=== PATIENT | female | born 1930 | race Caucasian/White ===

== ENCOUNTER 2017-10-11 23:18 | Emergency (ER) | payer MEDICARE ==
[~2017-10-11] VITALS: Ht 152.4 cm; Wt 60.6 kg
[2017-10-11 23:26] VITALS: BP 164/70; PULSE 79; RESP 18; TEMP 97.4; O2SAT 98
[2017-10-11 23:30] VITALS: BP 151/65; PULSE 74; RESP 18; O2SAT 96
[2017-10-12] MEDS ORDERED: NIFE1TAB86 PO (00:32)
[2017-10-12] MEDS ORDERED: MECL1TAB42 PO (00:32)
[2017-10-12] MEDS ORDERED: FOLI800T PO (00:32)
[2017-10-12] MEDS ORDERED: SPIR25TA PO (00:32)
[2017-10-12] MEDS ORDERED: IBAN150T3 PO (00:32)
[2017-10-12] MEDS ORDERED: NITR1SUB3 SL (00:32)
[2017-10-12] MEDS ORDERED: PRAV40TA2 PO (00:32)
[2017-10-12] MEDS ORDERED: ZOFR4TAB PO (00:32)
[2017-10-12] MEDS ORDERED: MIRTA15 PO (00:32)
[2017-10-12] MEDS ORDERED: CALCTAB25 PO (00:32)
[2017-10-12] MEDS ORDERED: LORA1TAB12 PO (00:32)
[2017-10-12] MEDS ORDERED: SPIRCAP INH (00:32)
[2017-10-12] MEDS ORDERED: ESCI5TAB PO (00:32)
[2017-10-12] MEDS ORDERED: SYMB80AE INH (00:32)
[2017-10-12] MEDS ORDERED: LANS30CA PO (00:32)
[2017-10-12] MEDS ORDERED: L-LY500T4 PO (00:32)
[2017-10-12] MEDS ORDERED: PLAV75TA29 PO (00:32)
[2017-10-12 01:15] VITALS: BP 145/63; PULSE 72; RESP 18; O2SAT 95
--- NOTE | 2017-10-12 01:28 | PD ---
HPI Chief Complaint: Respiratory Symptoms Time Seen by Provider: 01:20 Travel History International Travel<30 days: No Contact w/Intl Traveler<30days: No Traveled to known affect area: No History of Present Illness HPI The patient is an 87-year-old female that has a history of COPD, likely from secondhand smoke, because the patient never smoked. She has a cough for 7 days which is nonproductive. She denies any fever. On Monday she went to an urgent care center and had a chest x-ray which was reportedly normal and was put on prednisone. She has not gotten better, she continues to wheeze. She denies any chest pain. She was started 5 days ago on prednisone 20 mg twice daily for 10 days. PFSH Past Medical History Hx Anticoagulant Therapy: Yes (PLAVIX) Asthma: Yes Cardiovascular Problems: Yes (CARDIAC STENTS: AUG, 2016) COPD: Yes Respiratory: Yes (COPD) Influenza Vaccination: No ?: Not Past Surgical History Coronary Stent: Yes (2015) Thoracic Surgery: Yes (Back surgery) Tonsillectomy: Yes Social History Alcohol Use: No Tobacco Use: No Substance Use: No Allergies-Medications (Allergen,Severity, Reaction): Coded Allergies: codeine (Verified Allergy, Intermediate, Nausea/Vomiting, 10/12/17) Uncoded Allergies: CT DYE (Allergy, Intermediate, Rash, 10/11/17) Reported Meds & Prescriptions Reported Meds & Active Scripts Active Reported Ibandronate (Ibandronate Sodium) 150 Mg Tab 150 Mg PO Q28D Nitroglycerin SL (Nitroglycerin) 0.4 Mg Subl 0.4 Mg SL DIRECTED PRN ONE TABLET UNDER THE TONGUE NEEDED FOR CHEST PAIN, MAY REPEAT EVERY FIVE MINUTES FOR A TOTAL OF 3 DOSES OR CALL 911 IF NO RELIEF Escitalopram (Escitalopram Oxalate) 5 Mg Tab 5 Mg PO BID Meclizine 25 (Meclizine HCl) 25 Mg Tab 25 Mg PO DAILY l-Lysine (Lysine) 500 Mg Tab 500 Mg PO DAILY Zofran (Ondansetron HCl) 4 Mg Tab 4 Mg PO Q6HR PRN Mirtazapine 15 Mg Tab 15 Mg PO HS Lorazepam 1 Mg Tab 1 Mg PO BID PRN Symbicort Inh (Budesonide/Formoterol Fumarate) 80-4.5 Mcg/Act Aero 1 Puff INH Q12HR Lansoprazole 30 Mg Capdr 30 Mg PO DAILY Calcium 500 + Vit D Caplet (Calcium Carbonate/Vitamin D3) 500 Mg-125 Tablet 500 Mg PO DAILY Folic Acid 0.8 Mg Tab 800 Mcg PO DAILY Pravastatin 40 Mg Tab 40 Mg PO DAILY Spironolactone 25 Mg Tab 25 Mg PO DAILY Procardia XL (Nifedipine) 60 Mg Tab 60 Mg PO DAILY Spiriva Handihaler (Tiotropium Inh) 18 Mcg Cap 18 Mcg INH DAILY 1 capsule = 18 mcg Plavix (Clopidogrel Bisulfate) 75 Mg Tab 75 Mg PO DAILY Review of Systems Except as stated in HPI: all other systems reviewed are Neg Physical Exam Narrative GENERAL: The patient's vital signs show blood pressure 151/65 and are otherwise normal. Oximetry is 96%. The patient is in no respiratory distress other than the mild wheezing. SKIN: Focused skin assessment warm/dry. HEAD: Atraumatic. Normocephalic. EYES: Pupils equal and round. No scleral icterus. No injection or drainage. ENT: No nasal bleeding or discharge. Mucous membranes pink and moist. NECK: Trachea midline. No JVD. No neck vein distention is present. CARDIOVASCULAR: Regular rate and rhythm. No murmur appreciated. RESPIRATORY: No accessory muscle use. Bilateral wheezes are heard in all lung ferreira.. Breath sounds equal bilaterally. GASTROINTESTINAL: Abdomen soft, non-tender, nondistended. Hepatic and splenic margins not palpable. No guarding or rebound is present. MUSCULOSKELETAL: No obvious deformities. No clubbing. No cyanosis. No edema. NEUROLOGICAL: Awake and alert. No obvious cranial nerve deficits. Motor grossly within normal limits. Normal speech. PSYCHIATRIC: Appropriate mood and affect; insight and judgment normal. Data Data Last Documented VS Vital Signs Date Time Temp Pulse Resp B/P (MAP) Pulse Ox O2 Delivery O2 Flow Rate FiO2 10/12/17 02:42 71 18 119/62 (81) 93 Room Air 10/11/17 23:26 97.4 Orders Orders Influenzae A/B Antigen (10/12/17 01:28) Albuterol-Ipratropium Neb (Duoneb Neb) (10/12/17 01:30) Chest, Pa & Lat (10/12/17 01:56) MDM Medical Decision Making Medical Screen Exam Complete: Yes Emergency Medical Condition: Yes Medical Record Reviewed: Yes Interpretation(s) The influenza A/B antigen is negative for flu a and flu B antigen. The chest x- ray PA and lateral shows no acute disease. Differential Diagnosis Pneumonia, COPD with acute exacerbation, bronchitis with bronchospasm, asthma, viral syndrome Narrative Course The patient appears to have a viral syndrome. She also has COPD with acute exacerbation. I do not hear any abnormality in the lungs on auscultation and the chest x-ray was normal. The flu also was negative. Her oximetry was running 98% on room air after the nebulized treatments. Diagnosis Primary Impression: COPD with acute exacerbation Additional Impression: Viral syndrome Additional Instructions: As we discussed, it would be ideal if you can find a local assistant farm operations manager. Also as you suggested you can call your doctor in [facility] to see if he has any suggestions. Continue the prednisone as it was prescribed. Med/Other Pt SpecificInfo: No Change to Meds Disposition: 01 DISCHARGE HOME Condition: Stable Kevin Snow MD Oct 12, 2017 01:28
[2017-10-12] MEDS: RESP: ALBUTEROL 2.5 MG/IPRATROPIUM 0.5 MG NEB (SCH) INH ×3 (01:40→02:00)
[2017-10-12 02:42] VITALS: BP 119/62; PULSE 71; RESP 18; O2SAT 93
--- NOTE | 2017-10-12 03:03 | RADRPT ---
EXAM DATE/TIME: 10/12/2017 02:16 [place] COMPARISON: No previous studies available for comparison. INDICATIONS : Cough. MEDICAL HISTORY : None. SURGICAL HISTORY : None. ENCOUNTER: Initial ACUITY: 1 week PAIN SCORE: 0/10 LOCATION: Bilateral chest FINDINGS: PA and lateral views of the chest demonstrate the lungs to be symmetrically aerated without evidence of mass, infiltrate or effusion. Calcified granulomas are seen in the lateral right upper lung. The cardiomediastinal contours are unremarkable. Osseous structures are intact. CONCLUSION: No acute disease. Tres Cardona MD on October 12, 2017 at 3:01 Board Certified Radiologist. This report was verified electronically.
[2017-10-12 03:22] VITALS: BP 138/61
== END 2017-10-12 03:33 | disposition home or self-care (01) ==
LOC: PHED 23:18
DX: J44.1 Chronic obstructive pulmonary disease with (acute) exacerbation (principal); B34.9 Viral infection, unspecified; Z79.01 Long term (current) use of anticoagulants; Z86.79 Personal history of other diseases of the circulatory system
CPT/HCPCS: 71046; 87804; 94640; 94664; 99284